=== PATIENT | male | born 1945 | race Caucasian/White ===

== ENCOUNTER 2016-07-10 15:19 | Outpatient (CLI) | payer OTHER ==
--- NOTE | 2016-07-10 16:03 | DIAGNOSTIC IMAGING REPORT ---
PROCEDURE: XR CHEST 2 VIEW INDICATION: COUGH TECHNIQUE: PA and lateral views. 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 This probably represents the patient's known goiter. Lungs are clear. Heart and pulmonary vessels are normal. Thorax is normal. IMPRESSION: 1. Superior mediastinal mass deviating the trachea.
== END 2016-07-10 23:00 ==
LOC: XR SRH 15:19
DX: R05 Cough (principal); E04.9 Nontoxic goiter, unspecified